=== PATIENT | female | born 1975 | race Caucasian/White ===

== ENCOUNTER → 2016-10-04 | Outpatient (CLI) | payer MEDICARE, OTHER ==
[2015-12-09 17:43] VITALS: BP 202/106
[~2016-10-04] MED LIST: BUSP10TA PO; CITA20TA9 PO; CLON1TAB3 PO; CYCL10TA2 PO; DIAZ5TAB4 PO; ESTR1TAB15 PO; HYDR-971 PO; IBUP200T43 PO; LAMO150T3 PO; LEVO150T PO; METO25TA9 PO; TOPI25TA52 PO
--- NOTE | 2016-10-04 11:14 | RAD ---
DATE: October 04, 2016. EXAM: DIGITAL SCREEN BILAT W/CAD HISTORY: Screening study. COMPARISON: September 22, 2015. This study was interpreted with the benefit of Computerized Aided Detection (CAD). FINDINGS: The breast parenchyma shows scattered fibroglandular densities. There are no dominant suspicious masses, suspicious microcalcifications or evidence of architectural distortion. IMPRESSION: No mammographic indicators for malignancy. BI-RADS CATEGORY: 1 NEGATIVE RECOMMENDED FOLLOW-UP: 12M 12 MONTH FOLLOW-UP PQRS compliance statement: Patient information was entered into a reminder system with a target due date October 05, 2017 for the next mammogram. Mammography is a sensitive method for finding small breast cancers, but it does not detect them all and is not a substitute for careful clinical examination. A negative mammogram does not negate a clinically suspicious finding and should not result in delay in biopsying a clinically suspicious abnormality. "Our facility is accredited by the [employer] Mammography [employer]." The patient's breast density may affect the ability of mammography to detect breast cancer. There are 4 categories of breast density, A, B, C and D. Breast density A means that most of the breast tissue is replaced with adipose tissue and therefore is not dense. Breast density B means that the breast tissue is mildly dense and scattered. Breast density C means that the breast tissue is heterogeneously dense. Breast density D means that the breast tissue is very dense. Breast densities especially C and D may decrease the sensitivity of mammography to detect breast cancer. Therefore, the patient may benefit from 3-D breast mammography (3D breast tomography) as a part of their screening mammogram. Insurance may or may not pay for this additional imaging. The patient's breast density based on today's mammogram is category B.
== END | disposition home or self-care (01) ==
LOC: MAMMO 10:19
PROVIDERS: ATTEND Family Medicine
DX: Z12.31 Encounter for screening mammogram for malignant neoplasm of breast (principal)
CPT/HCPCS: G0202; 77067

== ENCOUNTER 2017-07-25 17:08 | Emergency (ER) | payer MEDICARE, OTHER ==
[2017-07-25 18:01] LABS: ADD MAN DIFF? NO
[2017-07-25 18:06] LABS: BASO % 0 % (0-3); EOS # 0.2 x10^3/uL (0.0-0.7); EOS % 2 % (0-3); HEMATOCRIT 42.5 % (36.0-47.0); HEMOGLOBIN 14.6 g/dL (12.0-15.5); LYMPH # 3.1 x10^3/uL (1.0-4.8); LYMPH % 37 % (24-48); MEAN CORPUSCULAR HEMOGLOBIN 31 pg (25-35); MEAN CORPUSCULAR HGB CONC 34 g/dL (31-37); MEAN CORPUSCULAR VOLUME 91 fL (79-100); MONO # 0.7 x10^3/uL (0.0-1.1); MONO % 9 % (0-9); NEUT # 4.4 x10^3uL (1.8-7.7); NEUT % 52 % (31-73); PLATELET COUNT 284 x10^3/uL (140-400); RED BLOOD COUNT 4.69 x10^6/uL (3.50-5.40); RED CELL DISTRIBUTION WIDTH 12.8 % (11.5-14.5); WHITE BLOOD COUNT 8.5 x10^3/uL (4.0-11.0)
[2017-07-25] MEDS: IV NORMAL SALINE 1000ML BAG 1,000 ML IV (18:07)
[2017-07-25 18:18] LABS: ANION GAP 10 (6-14); BLOOD UREA NITROGEN 16 mg/dL (7-20); BUN/CREATININE RATIO 23 (6-20); CALCIUM 9.7 mg/dL (8.5-10.1); CARBON DIOXIDE 26 mmol/L (21-32); CHLORIDE 105 mmol/L (98-107); CREATININE 0.7 mg/dL (0.6-1.0); GFR 91.3; GLUCOSE 104 mg/dL (70-99); POTASSIUM 4.3 mmol/L (3.5-5.1); SODIUM 141 mmol/L (136-145)
[2017-07-25 18:20] LABS: POC GLUCOSE 104 mg/dL (70-99)
[2017-07-25 18:23] LABS: BILIRUBIN,URINE NEGATIVE (NEG); CLARITY,URINE CLEAR; COLOR,URINE YELLOW; GLUCOSE,URINE NEGATIVE (NEG); NITRITE,URINE NEGATIVE (NEG); PH,URINE 5.5; PROTEIN,URINE NEGATIVE (NEG-TRACE); UROBILINOGEN,URINE 0.2 mg/dL (0.2 mg/dL)
[2017-07-25 18:27] LABS: ALBUMIN 3.9 g/dL (3.4-5.0); ALK PHOS 85 U/L (46-116); ALT (SGPT) 24 U/L (14-59); AST (SGOT) 21 U/L (15-37); CREATINE KINASE 94 U/L (26-192); TOTAL BILIRUBIN 0.3 mg/dL (0.2-1.0); TOTAL PROTEIN 7.7 g/dL (6.4-8.2)
[2017-07-25 18:36] LABS: BACTERIA,URINE MODERATE /HPF (0-FEW); RBC,URINE OCC /HPF (0-2); SQUAMOUS EPITHELIAL CELL,UR MOD /LPF
== END 2017-07-25 19:50 | disposition home or self-care (01) ==
LOC: ER 17:08
DX: E86.0 Dehydration (principal); E78.00 Pure hypercholesterolemia, unspecified; E03.9 Hypothyroidism, unspecified; F12.10 Cannabis abuse, uncomplicated; F31.9 Bipolar disorder, unspecified; F41.0 Panic disorder [episodic paroxysmal anxiety]; Z90.710 Acquired absence of both cervix and uterus; Z98.51 Tubal ligation status; Z96.0 Presence of urogenital implants; Z87.891 Personal history of nicotine dependence
CPT/HCPCS: 36415; 80053; 81001; 82550; 82962; 85025; 87086; 93005; 96360; 99285-25; J7030

== ENCOUNTER → 2017-10-19 | Outpatient (CLI) | payer MEDICARE, OTHER | END | disposition home or self-care (01) | LOC: MAMMO 14:55 | DX: Z12.31 Encounter for screening mammogram for malignant neoplasm of breast (principal) | CPT/HCPCS: 77063; 77067 ==

== ENCOUNTER → 2017-10-24 | Outpatient (CLI) | payer MEDICARE, OTHER | END | disposition home or self-care (01) | LOC: US 12:11 | DX: R92.8 Other abnormal and inconclusive findings on diagnostic imaging of breast (principal) | CPT/HCPCS: 76641 ==

== ENCOUNTER → 2017-11-20 | Outpatient (CLI) | payer MEDICARE, OTHER ==
[2017-07-25 19:27] VITALS: BP 129/71
[~2017-11-20] MED LIST changes: -CLON1TAB3 PO; +CLON1TAB4 PO; -IBUP200T43 PO; +IBUP200T44 PO; +METO-239 PO; -METO25TA9 PO
--- NOTE | 2017-11-20 16:11 | KCIC ---
MR of the left wrist Indication: Left wrist pain and limited range of motion for 2 weeks. No known injury. Ulnar pain. Comparison: None are available Technique: Standard multiplanar sequences are obtained. FINDINGS: Artifact: No significant image degradation Triangular fibrocartilage: Small subsubmillimeter tear of the disc, just medial to the radial attachment. Distal radioulnar alignment: Intact Extensor carpi ulnaris tendon: Mild surrounding fluid. Intact. Medial subluxation. Other extensor compartments: Minimal second, third and fourth compartment fluid. Flexor tendons: Intact Median nerve: Mildly hyperintense, normal size. First carpometacarpal ligaments: Intact Scapholunate ligament: Small defect at the proximal central aspect. Anterior and posterior bands are intact. Lunotriquetral ligament: No evidence of a tear. Carpal bone alignment: Within normal limits. Fluid: No significant effusion. Joints: No advanced DJD. Bones: No lesion or acute fracture Soft tissues: Unremarkable IMPRESSION: 1. Mild fluid surrounding the extensor carpi ulnaris tendon, could indicate mild tenosynovitis. Medial subluxation of the tendon without tear. 2. Mildly hyperintense median nerve, not necessarily abnormal, correlate for symptoms of neuropathy. 3. Tiny submillimeter tear of the TFC disc. 4. Small defect of the proximal central scapholunate ligament, compatible with very small tear versus asymptomatic perforation. Anterior and posterior bands are intact. Electronically signed by: Steve Correa MD (11/20/2017 4:07 PM) [facility]
== END | disposition home or self-care (01) ==
LOC: KCIC MRI 14:29
PROVIDERS: ATTEND Nurse Practitioner Gerontology
DX: S63.03 Subluxation and dislocation of midcarpal joint (principal); I10 Essential (primary) hypertension; E78.00 Pure hypercholesterolemia, unspecified; E03.9 Hypothyroidism, unspecified; Z87.891 Personal history of nicotine dependence; X58.XXXA Exposure to other specified factors, initial encounter; Y93.89 Activity, other specified; Y92.89 Other specified places as the place of occurrence of the external cause; Y99.8 Other external cause status
CPT/HCPCS: 73221

== ENCOUNTER → 2018-04-24 | Outpatient (CLI) | payer MEDICARE, MEDICAID ==
[2017-07-25 19:27] VITALS: BP 129/71
[~2018-04-24] MED LIST changes: +CLON1TAB11 PO; -CLON1TAB4 PO; +HYDR-3164 PO; -HYDR-971 PO
--- NOTE | 2018-04-24 11:07 | RAD ---
DATE: 04/24/2018 EXAM: MAMMO SANIYA KADEG RT, BREAST RIGHT HISTORY: 6 month follow-up COMPARISON: 10/19/2017 This study was interpreted with the benefit of Computerized Aided Detection (CAD). Breast Density: SCATTERED The breast parenchyma shows scattered fibroglandular densities. Breast parenchyma level B. FINDINGS: 2-D and 3-D tomosynthesis imaging was performed in CC and MLO projections. There is persistent nodule in the right breast at the 6:00 location. It is best seen on the CC projection and measures 11 mm in greatest diameter. It appears unchanged since 10/19/2017. No new or enlarging breast densities are seen. No suspicious microcalcifications are evident. Right breast ultrasound, 10/24/2017: A targeted ultrasound of the right breast was performed at the 6:00 location approximately 9 cm from the nipple. The previously seen nodule is redemonstrated. It is best delineated on the antiradial images where measures 9 x 4.5 mm. In this plain it appears unchanged since 10/24/2017. It is less clearly defined in the radial plane. It appears appears slightly longer in the radial plane than on the previous study, however, that is likely on a technical basis. It is longer than wide. There are low level internal echoes. There is no posterior acoustic enhancement. IMPRESSION: Probably benign right breast nodule. Follow-up bilateral mammography and right breast ultrasound in 6 months is suggested. BI-RADS CATEGORY: 3 PROBABLY BENIGN FINDING(S)-SHORT INTERVAL FOLLOW-UP SUGGESTED RECOMMENDED FOLLOW-UP: 6M 6 MONTH FOLLOW-UP PQRS compliance statement: Patient information was entered into a reminder system with a target due date for the next mammogram. Mammography is a sensitive method for finding small breast cancers, but it does not detect them all and is not a substitute for careful clinical examination. A negative mammogram does not negate a clinically suspicious finding and should not result in delay in biopsying a clinically suspicious abnormality. "Our facility is accredited by the [employer] Mammography Program."
== END | disposition home or self-care (01) ==
LOC: MAMMO 09:36
PROVIDERS: ATTEND Family Medicine
DX: R92.8 Other abnormal and inconclusive findings on diagnostic imaging of breast (principal)
CPT/HCPCS: 76641; 77065; G0279; 77061

== ENCOUNTER 2018-06-30 16:43 | Emergency (ER) | payer MEDICARE ==
[~2018-06-30] VITALS: Ht 167.6 cm; Wt 119.3 kg
[2018-06-30] MEDS ORDERED: IV NORMAL SALINE 1000ML BAG 1,000 ML IV ONE (18:30)
[2018-06-30] MEDS ORDERED: KETOROLAC 15 MG/ML VIAL. IV ONE (18:30)
[2018-06-30] MEDS ORDERED: diphenhydrAMINE 50 MG/ML VIAL IVP ONE (18:30)
[2018-06-30] MEDS ORDERED: PROCHLORPERAZINE 10 MG/2 ML VIAL. IV ONE (18:30)
--- NOTE | 2018-06-30 18:32 | PHYS DOC ---
Past Medical History Past Medical History: Anxiety, Bipolar, Depression, High Cholesterol, Hypothyroid, Other Additional Past Medical Histor: Metabolic Syndrome, Panic, Fatty liver. Past Surgical History: Hysterectomy, Tubal ligation, Other Additional Past Surgical Histo: Bladder sling. Alcohol Use: Occasionally Drug Use: Marijuana Adult General Chief Complaint Chief Complaint: HEADACHE HPI HPI Patient is a 43 yo female w/ hx of migraines who presents complaining of migraine headache. She reports she awoke w/ headache and it has gradually worsened throughout the day. she takes Bupap to help with headaches. She reports she took one dose this morning and one dose this afternoon around 1400 without symptomatic relief. She reports the pain is on the left side of her head and neck. She admits to photophobia and some nausea. Denies vomiting. Denies chest pain, SOA, fevers, abdominal or urinary sx. She reports she thinks the change in weather may have triggered her migraine, although she has been migraine free for almost 2 years. She denies changes in vision, slurring of words, confusion or weakness. She currently complains of 7/10 pain but is unable to further characterize her pain. She reports she had a hysterectomy. She denies etoh or smoking tobacco but reports daily marijuana use. Patient's PCP is Cornel. She denies recent travel and reports her only sick contact is her . Review of Systems Review of Systems Constitutional: Denies fever or chills [] Eyes: Denies change in visual acuity, redness, or eye pain [] HENT: Denies nasal congestion or sore throat [] Respiratory: Denies cough or shortness of breath [] Cardiovascular: Denies chest pain. Denies palpitations GI: Denies abdominal pain, nausea, vomiting, bloody stools or diarrhea [] : Denies dysuria or hematuria [] Musculoskeletal: Denies back pain or joint pain [] Integument: Denies rash or skin lesions [] Neurologic: Admits left sided head and neck pain of gradual onset. Denies weakness, denies slurring. Admits photophobia. Denies phonophobia. All other systems were reviewed and found to be within normal limits, except as documented in this note. Current Medications Current Medications Current Medications Medications (Trade) Dose Ordered Sig/Astrid Start Time Stop Time Status Last Admin Dose Admin Diphenhydramine HCl (Benadryl) 25 mg 1X ONCE 06/30/18 18:30 06/30/18 18:31 DC 06/30/18 18:49 25 MG Ketorolac Tromethamine (Toradol 15mg Vial) 15 mg 1X ONCE 06/30/18 18:30 06/30/18 18:31 DC 06/30/18 18:48 15 MG Prochlorperazine Edisylate (Compazine) 10 mg 1X ONCE 06/30/18 18:30 06/30/18 18:31 DC 06/30/18 18:50 10 MG Sodium Chloride 1,000 ml @ 1,000 mls/hr 1X ONCE 06/30/18 18:30 06/30/18 19:29 DC 06/30/18 18:30 1,000 MLS/HR Allergies Allergies Allergies Coded Allergies Type Severity Reaction Last Updated Verified No Known Drug Allergies 03/26/13 No Physical Exam Physical Exam Constitutional: Well developed, well nourished, non-toxic appearing. Eyes closed with jacket over face. HENT: Normocephalic, atraumatic Eyes: PERRLA, EOMI, conjunctiva normal, no discharge. [] Neck: Normal range of motion including rotation, flexion and extension, no tenderness, supple. Cardiovascular:Heart rate regular rhythm, no murmur [] Lungs & Thorax: Bilateral breath sounds clear to auscultation [] Abdomen: Soft, no tenderness, no masses, no pulsatile masses. [] Skin: Warm, dry, no erythema, no rash. Extremities: No tenderness, no cyanosis, no clubbing, ROM intact, no edema. [] Neurologic: Alert and oriented X 3, no past pointing on finger to nose. Heel to dodd intact BL. UE/LE muscle strength 5/5. Facial, UE and LE dermatomes intact BL. Psychologic: Affect normal, judgement normal, mood normal. [] Current Patient Data Vital Signs Vital Signs Date Time Temp Pulse Resp B/P (MAP) Pulse Ox O2 Delivery O2 Flow Rate FiO2 06/30/18 19:00 70 16 95 06/30/18 18:24 98.6 131/62 (85) Room Air 98.6 EKG EKG [] Radiology/Procedures Radiology/Procedures [] Course & Med Decision Making Course & Med Decision Making Patient is 43 yo female w/ hx migraine headaches who presents with complaint of L sided headache and neck pain of gradual onset that feels similar to previous headaches. Although she has not had a migraine headache in almost 2 years, she thinks the change in weather triggered this migraine, which feels similar as her previous migraines. She reports she took 2 doses of BI pap medication without any symptomatic relief, causing her to come to ED. Vitals unremarkable. On physical exam patient neurologically intact, heart/lung/abd exam unremarkable. Of note throughout exam patient preferred to have cloth over eyes with eyes closed d/t photophobia. Patient given migraine cocktail of compazine, benadryl, and toradol. Upon reassessment after medication administration patient reports her symptoms have abated and she is no longer suffering from photophobia. Discussed with patient the plan to dc home and follow up with PCP ( Cornel) or ED if symptoms return or worsen. Patient voiced understanding and agreement with plan. Dragon Disclaimer Dragon Disclaimer This electronic medical record was generated, in whole or in part, using a voice recognition dictation system. Departure Departure Impression: Primary Impression: Headache Disposition: 01 HOME, SELF-CARE Condition: STABLE Referrals: AIYANA HINTON MD (PCP) MARTINEZ RIVERA MD Jun 30, 2018 18:32
[2018-06-30 19:00] VITALS: BP 132/75
== END 2018-06-30 19:56 | disposition home or self-care (01) ==
LOC: ER 16:43
DX: R51 Headache (principal); M54.2 Cervicalgia; R11.0 Nausea; G43.909 Migraine, unspecified, not intractable, without status migrainosus; E03.9 Hypothyroidism, unspecified; E78.00 Pure hypercholesterolemia, unspecified; F31.9 Bipolar disorder, unspecified; F12.90 Cannabis use, unspecified, uncomplicated
CPT/HCPCS: 96374; 96375; 99284; J0780; J1200; J1885; J7030

== ENCOUNTER → 2018-10-22 | Outpatient (CLI) | payer MEDICARE, OTHER ==
--- NOTE | 2018-10-22 11:31 | RAD ---
DATE: 10/22/2018 EXAM: MAMMO SANIYA HUMPHREY CHAVEZAT HISTORY: Right breast lesion follow-up. COMPARISON: Previous right breast mammogram from 04/24 62,019 and bilateral mammogram from 10/19. This study was interpreted with the benefit of Computerized Aided Detection (CAD). FINDINGS: Breast Density: SCATTERED The breast parenchyma shows scattered fibroglandular densities. Breast parenchyma level B. Stable asymmetry in the inferior right breast at 6:00 position. New right outer breast asymmetry measuring 8 mm likely at 9:00 position. Left breast demonstrates no mammographic abnormality.No suspicious calcifications. IMPRESSION: Right breast asymmetries as described above. Please see ultrasound report from the same day. BI-RADS CATEGORY: 3 PROBABLE BENIGN FINDING(S-SHORT INTERVAL FOLLOW-UP SUGGESTED RECOMMENDED FOLLOW-UP: 6M 6 MONTH FOLLOW-UP. 6 month right breast mammogram and ultrasound recommended. PQRS compliance statement: Patient information was entered into a reminder system with a target due date for the next mammogram. Mammography is a sensitive method for finding small breast cancers, but it does not detect them all and is not a substitute for careful clinical examination. A negative mammogram does not negate a clinically suspicious finding and should not result in delay in biopsying a clinically suspicious abnormality. "Our facility is accredited by the [employer] Mammography Program."
--- NOTE | 2018-10-22 11:35 | RAD ---
Indication: Right breast abnormality. TECHNIQUE: Limited right breast ultrasound COMPARISON: 04/24/2018 ultrasound. FINDINGS: At 6:00 position approximately 9 cm from the nipple there is an oval-shaped hypoechoic mass measuring 0.8 x 0.8 x 0.3 cm, previously 0.9 x 1.1 x 0.4 cm. No internal vascularity or posterior shadowing. At 9:30 position approximately 9 cm from the nipple there is another hypoechoic oval-shaped mass measuring 0.4 x 0.5 x 0.2 cm which is wider than taller without posterior shadowing or vascularity. IMPRESSION: Relatively stable right breast 6:00 position lesion likely benign. New right lateral breast nodule without worrisome features likely benign. BI-RADS 3: Probably benign. Follow-up right breast mammogram and ultrasound in 6 months recommended.
== END | disposition home or self-care (01) ==
LOC: MAMMO 09:55
PROVIDERS: ATTEND Family Medicine
DX: N63.13 Unspecified lump in the right breast, lower outer quadrant (principal); N63.11 Unspecified lump in the right breast, upper outer quadrant; N64.89 Other specified disorders of breast
CPT/HCPCS: 76641; 77066; G0279; 77062

== ENCOUNTER 2018-12-01 04:05 | Emergency (ER) | payer MEDICARE ==
[~2018-12-01] VITALS: Ht 167.6 cm; Wt 124.7 kg
[~2018-12-01 04:05] MED LIST changes: -CLON1TAB11 PO; +CLONAZEPAM1 MG PO
[2018-12-01] MEDS ORDERED: KETOROLAC 15 MG/ML VIAL. IV ONE (04:30)
[2018-12-01] MEDS ORDERED: IV NORMAL SALINE 1000ML BAG 1,000 ML IV ONE (04:30)
[2018-12-01] MEDS ORDERED: PROCHLORPERAZINE 10 MG/2 ML VIAL. IV ONE (04:30)
[2018-12-01] MEDS ORDERED: diphenhydrAMINE 50 MG/ML VIAL IVP ONE (04:30)
--- NOTE | 2018-12-01 05:39 | PHYS DOC ---
Past Medical History Past Medical History: Anxiety, Bipolar, Depression, High Cholesterol, Hyp othyroid, Other Additional Past Medical Histor: Metabolic Syndrome, Panic, Fatty liver. Past Surgical History: Hysterectomy, Tubal ligation, Other Additional Past Surgical Histo: Bladder sling. Alcohol Use: Occasionally Drug Use: Marijuana Adult General Chief Complaint Chief Complaint: HEADACHE HPI HPI Patient is a 43 year old f p/w migraine. "it started out as a regular h/a but its getting worse and worse." left side around the eye radiates to the side of the head and also the neck too. similar to prior migraine photophobia noted patient has n/v no fever. Review of Systems Review of Systems Eyes: Denies change in visual acuity, redness, or eye pain [] HENT: Denies nasal congestion or sore throat [] Respiratory: Denies cough or shortness of breath [] Musculoskeletal: Denies back pain or joint pain [] Integument: Denies rash or skin lesions [] Neurologic: Denies focal weakness or sensory changes [] Endocrine: Denies polyuria or polydipsia [] All other systems were reviewed and found to be within normal limits, except as documented in this note. Current Medications Current Medications Current Medications Medications (Trade) Dose Ordered Sig/Astrid Start Time Stop Time Status Last Admin Dose Admin Diphenhydramine HCl (Benadryl) 50 mg 1X ONCE 12/01/18 04:30 12/01/18 04:34 DC 12/01/18 04:43 50 MG Ketorolac Tromethamine (Toradol 15mg Vial) 15 mg 1X ONCE 12/01/18 04:30 12/01/18 04:34 DC 12/01/18 04:43 15 MG Prochlorperazine Edisylate (Compazine) 10 mg 1X ONCE 12/01/18 04:30 12/01/18 04:34 DC 12/01/18 04:43 10 MG Sodium Chloride 1,000 ml @ 1,000 mls/hr 1X ONCE 12/01/18 04:30 12/01/18 05:29 DC 12/01/18 04:43 1,000 MLS/HR Allergies Allergies Allergies Coded Allergies Type Severity Reaction Last Updated Verified No Known Drug Allergies 03/26/13 No Physical Exam Physical Exam Constitutional: Well developed, photophobic distress HENT: Normocephalic, atraumatic, bilateral external ears normal, oropharynx moist, no oral exudates, nose normal. [] Eyes: PERRLA, EOMI, conjunctiva normal, no discharge. [] Neck: Normal range of motion, no tenderness, supple, no stridor. [] Cardiovascular:Heart rate regular rhythm, no murmur [] Lungs & Thorax: Bilateral breath sounds clear to auscultation [] Abdomen: Bowel sounds normal, soft, no tenderness, no masses, no pulsatile masses. [] Skin: Warm, dry, no erythema, no rash. [] Back: No tenderness, no CVA tenderness. [] Extremities: No tenderness, no cyanosis, no clubbing, ROM intact, no edema. [] Neurologic: Alert and oriented X 3, normal motor function, normal sensory function, no focal deficits noted. [] photophobia otherwise normal neuro exam Psychologic: Affect normal, judgement normal, mood normal. [] Current Patient Data Vital Signs Vital Signs Date Time Temp Pulse Resp B/P (MAP) Pulse Ox O2 Delivery O2 Flow Rate FiO2 12/01/18 04:10 98.5 79 16 159/85 (109) 96 Room Air 98.5 EKG EKG [] Radiology/Procedures Radiology/Procedures [] Course & Med Decision Making Course & Med Decision Making Pertinent Labs and Imaging studies reviewed. (See chart for details) []given migraine cocktail with improvement no red flags not thunderclap not sudden onset Dragon Disclaimer Dragon Disclaimer This electronic medical record was generated, in whole or in part, using a voice recognition dictation system. Departure Departure Impression: Primary Impression: Headache Disposition: HOME, SELF-CARE Condition: IMPROVED Referrals: AIYANA HINTON MD (PCP) Patient Instructions: Headache, FAQs MARTINEZ RIVERA MD Dec 01, 2018 05:39
[2018-12-01 05:42] VITALS: BP 132/78
== END 2018-12-01 05:50 | disposition home or self-care (01) ==
LOC: ER 04:05
DX: G43.909 Migraine, unspecified, not intractable, without status migrainosus (principal); R11.2 Nausea with vomiting, unspecified; E78.00 Pure hypercholesterolemia, unspecified; E03.9 Hypothyroidism, unspecified; F31.9 Bipolar disorder, unspecified; F41.9 Anxiety disorder, unspecified; E88.81 Metabolic syndrome and other insulin resistance
CPT/HCPCS: 96361; 96374; 96375; 99284; J0780; J1200; J1885; J7030

== ENCOUNTER → 2018-12-05 | Outpatient (CLI) | payer MEDICARE ==
[2018-06-30 19:00] VITALS: BP_SYST 132
[2018-12-01 05:42] VITALS: BP_DIAS 78
--- NOTE | 2018-12-06 10:58 | SLEEP ---
DATE OF STUDY: 12/05/2018 SLEEP STUDY The patient is a 43-year-old who weighs 270 pounds with a BMI of 43. The patient's [place] score was 13. The patient underwent split night study performed at [facility]. During the night study, the patient spent 582 minutes in bed and slept for 219 minutes. The patient's sleep efficiency was 38%; however, there was a technical error as over a couple of hours of data was missed during the diagnostic portion due to technical error. The patient's sleep architecture showed increased stage 1 and stage 2 sleep, normal slow wave and reduced REM sleep, which was only 2% of the total sleep time. REM sleep latency was 371 minutes with a sleep latency of 27 minutes. During the initial diagnostic portion of the study, the patient slept for 146 minutes. During that time, there were 4 obstructive apneas, 1 mixed apnea, no central apneas and 48 hypopneas. The patient's apnea-hypopnea index was 22 per hour, supine index of 57 per hour and REM index of 120 per hour. Nocturnal oximetry study revealed a mean oxygen saturation of 92%; the lowest of 80%. 3.9% of time oxygen saturation remained between 80% and 89%. No PLMS observed. EKG monitoring revealed mean heart rate of 83 beats per minute, no sustained arrhythmias observed. The patient was started on CPAP at 5 cm water, the patient slept at that pressure for 72 minutes. The patient had supine sleep, but no REM sleep. The patient's AHI was reduced to 0 per hour. Oxygen saturation remained above 92%. The patient used small size nasal mask. IMPRESSION: Moderate sleep apnea-hypopnea syndrome with worsening during REM sleep. The severity of sleep apnea may have been underestimated due to some technical errors during the diagnostic portion. No clinically significant nocturnal hypoxia. No clinically significant PLMs. RECOMMENDATIONS: 1. CPAP at 5 cm water completely eliminated the patient's sleep apnea and should be used on a nightly basis. It should be noted that no REM sleep was observed during the diagnostic portion and I would recommend to review the download data in 30 days to make sure AHI remains less than 5 per hour. 2. Avoid [employer] depressants. 3. Cautioned regarding driving until symptoms of sleep apnea resolve with the use of CPAP. 4. The weight loss is strongly advised. MANISHA HUTTON MD DR: Le JOB#: [id number] / [id number] Steve Owens
== END | disposition home or self-care (01) ==
LOC: SLPLAB 19:02
PROVIDERS: ATTEND Family Medicine
DX: G47.33 Obstructive sleep apnea (adult) (pediatric) (principal); I10 Essential (primary) hypertension; E78.5 Hyperlipidemia, unspecified; E03.9 Hypothyroidism, unspecified; E66.01 Morbid (severe) obesity due to excess calories; Z79.84 Long term (current) use of oral hypoglycemic drugs; Z79.890 Hormone replacement therapy; Z79.899 Other long term (current) drug therapy; Z90.710 Acquired absence of both cervix and uterus; Z98.51 Tubal ligation status
CPT/HCPCS: 95810

== ENCOUNTER → 2019-04-24 | Outpatient (CLI) | payer MEDICARE ==
[2018-06-30 19:00] VITALS: BP_SYST 132
[2018-12-01 05:42] VITALS: BP_DIAS 78
--- NOTE | 2019-04-24 15:07 | RAD ---
Right diagnostic mammogram. INDICATION: Six-month follow-up probably benign nodules in the right breast. COMPARISON: Right breast ultrasound examinations of 10/22/2018 and 10/24/2017. Also bilateral diagnostic mammograms of 10/22/2018 and 10/19/2017. TECHNIQUE: 2-D and 3-D imaging of the right breast was performed in the CC and MLO projections and reviewed with computer-aided detection FINDINGS: Scattered fibroglandular densities. The isodense circumscribed oval mass in the inferior right breast measuring approximately 11 mm is mammographically unchanged. The lateral, smaller cystic lesion seen on recent ultrasound of the right 9:30 o'clock position 9 cm from the nipple is likely present as one of a few isodense circumscribed subtle small nodular densities in the right breast in the setting of a nodular parenchymal pattern. There are no suspicious mammographic findings. Since an ultrasound examination at this visit would not complete 2 years of imaging follow-up for the initial 6:00 finding recall from screening, an ultrasound at today's visit is deferred in favor of a bilateral diagnostic mammogram with the option of targeted right breast ultrasound in 6 months when the patient is due for bilateral mammographic screening. IMPRESSION: Probably benign findings in right breast on diagnostic mammogram. Recommend bilateral diagnostic mammogram in 6 months to resume screening on the left and completion of 2 year follow-up on the right. Recommendation is communicated to the patient by the mammographic technologist, IV-and my request prior to her discharge from this facility. BI-RADS Category 3 Probably benign findings 6 month follow-up bilateral mammogram recommended. Patient entered into a reminder system with targeted due date for next mammogram. Electronically signed by: Abraham Valdez MD (04/24/2019 3:04 PM) [facility]
== END | disposition home or self-care (01) ==
LOC: MAMMO 12:58
PROVIDERS: ATTEND Family Medicine
DX: R92.8 Other abnormal and inconclusive findings on diagnostic imaging of breast (principal)
CPT/HCPCS: 77065; G0279; 77061

== ENCOUNTER → 2019-11-12 | Outpatient (CLI) | payer MEDICARE ==
[~2019-11-12] MED LIST changes: +ESTR-113 PO; -ESTR1TAB15 PO
--- NOTE | 2019-11-12 13:18 | RAD ---
DATE: 11/12/2019 10:29 AM EXAM: MAMMO SANIYA HUMPHREY CHAVEZAT, BREAST BILATERAL HISTORY: Patient is due for bilateral mammographic screening and returns for completion of 2 years follow-up probably benign findings in the right breast. COMPARISON: Bilateral mammograms of 10/19/2017, 10/22/2018, and right diagnostic mammograms of 04/24/2018 and 04/24/2019 as well as right breast ultrasound examinations of 10/24/2017 and 04/24/2018. TECHNIQUE: Bilateral CC and MLO views of the breasts were performed. Bilateral breast tomosynthesis was performed in CC and MLO projections. This study was interpreted with the benefit of Computerized Aided Detection (CAD). Targeted ultrasound of both breasts was performed. FINDINGS: Breast Density: FATTY The Breast Parenchyma is primarily fatty replaced. Breast parenchyma level density A. In the right breast, the 8mm mass at the 6:00 position 9 cm from the nipple is less conspicuous and shows no suspicious interval change on mammography. There is no developing mass, architectural distortion or suspicious calcifications in the right breast. Targeted ultrasound of the right breast confirmed benign sonographic findings with partial interval collapse of the septated cyst at that location. In the left breast, a dense, oval 8 mm mass in the middle third upper outer left breast is the densest finding in the left breast and has not previously been imaged by ultrasound. It was pursued for additional imaging by targeted ultrasound at this visit which revealed 2 adjacent round circumscribed masses measuring 4 and 3 mm in close approximation at the 2:00 position 8 cm from the nipple. Together, they account for the dense mass in the upper outer left breast and likely reflect 2 foci of noncalcified fat necrosis. The sonographically benign appearance at this visit and stability on mammography for at least the past 2 years favor a benign etiology. IMPRESSION: Benign findings on bilateral mammogram and targeted ultrasound of the breasts. No evidence of malignancy. Discussed with patient. I encouraged her to maintain self breast awareness and to promptly report any new or changing breast symptoms to her referring physician for timely follow-up. BI-RADS CATEGORY: 2 BENIGN FINDING(S) RECOMMENDED FOLLOW-UP: 12M 12 MONTH FOLLOW-UP Annual screening mammography is recommended, unless clinically indicated sooner based on symptoms or change in physical exam. PQRS compliance statement: Patient information was entered into a reminder system with a target due date 11/12/2020 for the next mammogram. Mammography is a sensitive method for finding small breast cancers, but it does not detect them all and is not a substitute for careful clinical examination. A negative mammogram does not negate a clinically suspicious finding and should not result in delay in biopsying a clinically suspicious abnormality. "Our facility is accredited by the [employer] Mammography [employer]."
== END | disposition home or self-care (01) ==
LOC: MAMMO 10:22
PROVIDERS: ATTEND Family Medicine
DX: R92.2 Inconclusive mammogram (principal); N63.14 Unspecified lump in the right breast, lower inner quadrant; N63.21 Unspecified lump in the left breast, upper outer quadrant
CPT/HCPCS: 76641; 77066; G0279; 77062

== ENCOUNTER → 2020-11-30 | Outpatient (CLI) | payer MEDICARE ==
--- NOTE | 2020-11-30 15:59 | RAD ---
EXAM: Bilateral digital screening mammogram with tomosynthesis. HISTORY: 45-year-old female presents for screening mammography. TECHNIQUE: Full-field digital craniocaudal and mediolateral oblique 2D and 3D tomosynthesis images of both breasts are obtained for evaluation. Computer aided detection was applied. COMPARISON: 11/12/2019 BREAST PARENCHYMAL DENSITY: Level B - Scattered fibroglandular densities. FINDINGS: There is no new suspicious mass, microcalcification or region of architectural distortion. There are stable benign areas of asymmetry and nodularity within both breasts. There are a few benign calcifications. IMPRESSION: BI-RADS Category 2: Benign finding(s). RECOMMENDATION: Annual mammography is recommended. If your mammogram demonstrates that you have dense breast tissue, which could hide abnormalities, and if you have other risk factors for breast cancer that have been identified, you might benefit from s upplemental screening tests that may be suggested by your ordering physician. Dense breast tissue, i n and of itself, is a relatively common condition. This information is not provided to cause undue c oncern, but rather to raise your awareness and to promote discussion with your physician regarding th e presence of other risk factors, in addition to dense breast tissue. A report of your mammography re sults will be sent to you and your physician. You should contact your physician if you have any ques tions or concerns regarding this report. Mammography is a sensitive method for finding small breast cancers, but it does not detect them all a nd is not a substitute for careful clinical examination. A negative mammogram does not negate a clin ically suspicious finding and should not result in delay in biopsying a clinically suspicious abnorma lity. PQRS compliance statement - Patient information was entered into a reminder system with a target due date for the next mammogram. "Our facility is accredited by the [employer] Mammography [employer]." Electronically signed by: Antonietta Coker MD (11/30/2020 3:57 PM) [id number]
== END ==
LOC: MAMMO 14:13
PROVIDERS: ATTEND Family Medicine
DX: Z12.31 Encounter for screening mammogram for malignant neoplasm of breast (principal); R92.1 Mammographic calcification found on diagnostic imaging of breast
CPT/HCPCS: 77063; 77067